=== PATIENT | male | born 1975 | race Caucasian/White ===

== ENCOUNTER 2021-10-16 00:36 | Emergency (ER) | payer SELFPAY ==
[~2021-10-16] VITALS: Ht 170.2 cm; Wt 93.0 kg
--- NOTE | 2021-10-16 00:36 | NUR ---
ARMANI AGRAWALP TAKEN TO CHAIR A
[2021-10-16 00:37] VITALS: BP 159/98
[2021-10-16] MEDS ORDERED: TETRACAINE HCL/PF 0.5% OPTH 4 ML BTL OP ONE (00:45)
--- NOTE | 2021-10-16 00:48 | NUR ---
VISUAL ACUITY FOLLOWS: RT/LT 20/50 AND BOTH 20/40
[2021-10-16] MEDS ORDERED: FLUORESCEIN OPTH STRIP 1 MG ONE (00:50)
[2021-10-16] MEDS ORDERED: FLUORESCEIN OPTH STRIP 1 MG OP ONE (00:50)
[2021-10-16] MEDS ORDERED: TOBR5SOL17 OP (01:19)
[2021-10-16] MEDS ORDERED: KETO5SOL OP (01:19)
[2021-10-16] MEDS ORDERED: ERYTHROMYCIN 0.5% OPTH OINT 1 GM TUBE OP ONE (01:25)
[2021-10-16 02:00] VITALS: BP 159/98
--- NOTE | 2021-10-16 02:00 | NUR ---
Patient discharged with v/s stable. Written and verbal after care instructions given and explained. Patient alert, oriented and verbalized understanding of instructions. Police with in custody. All questions addressed prior to discharge. ID band removed. Patient advised to follow up with PMD. Rx of TOBRAMYCIN AND ACULAR given. Patient educated on indication of medication including possible reaction and side effects. Opportunity to ask questions provided and answered.
== END 2021-10-16 02:00 | disposition home or self-care (01) ==
LOC: MED 00:36
DX: S05.02XA Injury of conjunctiva and corneal abrasion without foreign body, left eye, initial encounter (principal); S05.01XA Injury of conjunctiva and corneal abrasion without foreign body, right eye, initial encounter; F10.129 Alcohol abuse with intoxication, unspecified; E11.9 Type 2 diabetes mellitus without complications; I10 Essential (primary) hypertension; Z02.89 Encounter for other administrative examinations; V89.2XXA Person injured in unspecified motor-vehicle accident, traffic, initial encounter; Y93.89 Activity, other specified; Y92.89 Other specified places as the place of occurrence of the external cause; Y99.8 Other external cause status
CPT/HCPCS: 99284